=== PATIENT | female | born 1985 | race Caucasian/White ===

== ENCOUNTER 2020-07-09 10:00 | Observation (INO) | payer OTHER ==
[2020-07-06 10:17] LABS: BASOPHILS # (AUTO) 0.1 (0.0-0.1); BASOPHILS % 0.7 % (0.0-1.0); EOSINOPHILS # (AUTO) 0.2 (0.0-0.4); EOSINOPHILS % 2.2 % (0.0-6.0); HEMATOCRIT 38.6 % (34.2-44.1); HEMOGLOBIN 12.9 g/dL (12.0-16.0); LYMPHOCYTES # (AUTO) 2.9 (1.0-3.2); LYMPHOCYTES % 28.5 % (18.0-39.1); MEAN CORPUSCULAR HEMOGLOBIN 30.5 pg (28-32); MEAN CORPUSCULAR HGB CONC 33.4 g/dL (31-35); MEAN CORPUSCULAR VOLUME 91.3 fL (81-99); MONOCYTES # (AUTO) 0.7 (0.2-0.8); NEUTROPHILS # (AUTO) 6.2 (2.1-6.9); PLATELET COUNT 283 x10e3/uL (140-360); RED BLOOD COUNT 4.23 x10e6/uL (3.6-5.1); RED CELL DISTRIBUTION WIDTH 12.3 % (11.7-14.4)
[2020-07-06 10:38] LABS: ALANINE AMINOTRANSFERASE 19 IU/L (0-55); ALBUMIN 3.7 g/dL (3.5-5.0); ALBUMIN/GLOBULIN RATIO 1.1 (0.8-2.0); ALKALINE PHOSPHATASE 78 IU/L (40-150); ANION GAP 16.2 mmol/L (8-16); BLOOD UREA NITROGEN 16 mg/dL (7-26); BUN/CREATININE RATIO 20 (6-25); CALCIUM 8.2 mg/dL (8.4-10.2); CARBON DIOXIDE 19 mmol/L (22-29); CHLORIDE 107 mmol/L (98-107); CREATININE, SERUM 0.82 mg/dL (0.57-1.11); EST GLOMERULAR FILTRATION RATE > 60 ML/MIN (60-); GLUCOSE 109 mg/dL (74-118); POTASSIUM 4.2 mmol/L (3.5-5.1); SODIUM 138 mmol/L (136-145)
[~2020-07-09] VITALS: Ht 175.3 cm; Wt 127.5 kg
[~2020-07-09 10:00] MED LIST: ALEVE; BUSPIRONE HCL10 MG PO; CYMBALTA30 MG PO; DEPAKOTE ER250 MG PO; IBUPROFEN; LIPITOR10 MG PO; METFORMIN HCL500 MG PO; METOPROLOL SUCC50 MG PO; QUETIAPINE FUM100 MG PO; TYLENOL; ZOLPIDEM TARTRAT5 MG PO
[2020-07-09] MEDS ORDERED: BUPIVACAINE 0.25% 30ML SDV ONE (11:16)
[2020-07-09] MEDS ORDERED: BUPIVACAINE LIPOSOME/PF 266 MG/20 ML IJ ONE (11:16)
[2020-07-09] MEDS ORDERED: SODIUM CHLORIDE 0.9% 100 ML ONE (13:36)
[2020-07-09] MEDS ORDERED: BISACODYL 10 MG SUPP PR PRN (16:00)
[2020-07-09] MEDS ORDERED: HYDROMORPHONE 1MG/1ML INJ IV PRN (16:00)
[2020-07-09] MEDS ORDERED: KETOROLAC TROMETHAMINE 30 MG/ML VIAL IM PRN (16:00)
[2020-07-09] MEDS ORDERED: OXYCODONE HCL 10 MG TAB CR PO PRN (16:00)
[2020-07-09] MEDS ORDERED: DIPHENHYDRAMINE HCL 25 MG CAP PO PRN (16:00)
[2020-07-09] MEDS ORDERED: ACETAMINOPHEN 325 MG TAB PO PRN (16:00)
[2020-07-09] MEDS ORDERED: DOCUSATE SODIUM 100 MG CAP PO PRN (16:00)
[2020-07-09] MEDS ORDERED: ONDANSETRON HCL INJ 2MG/ML 2ML 2 MG/ML VIAL IV PRN (16:00)
[2020-07-09 20:00] VITALS: BP 108/72
[2020-07-09] MEDS ORDERED: TOPIRAMATE25 MG PO (20:18)
[2020-07-09 20:20] VITALS: BP 108/72
[2020-07-09] MEDS ORDERED: QUETIAPINE FUMARATE 100 MG TAB PO SCH (21:00)
[2020-07-09] MEDS ORDERED: DULOXETINE HCL 30 MG DELAYED RELEASE PO SCH (21:00)
[2020-07-09] MEDS ORDERED: ATORVASTATIN 20 MG TAB PO SCH (21:00)
[2020-07-09] MEDS ORDERED: ZOLPIDEM TARTRATE 5 MG TAB PO PRN (21:00)
[2020-07-09] MEDS ORDERED: DEXTROSE 50% SYRINGE 50 ML IV PRN (21:15)
[2020-07-09] MEDS: INSULIN REGULAR, HUMAN 100 UNIT/1 ML 3ML VIAL SQ SCH (21:30)
[2020-07-09] MEDS: LACTATED RINGER'S 1,000 ML IV SCH (21:40)
[2020-07-09] MEDS: METFORMIN HCL 500 MG TAB PO SCH (21:41)
[2020-07-09] MEDS: IBUPROFEN 600 MG TAB PO SCH (21:41)
[2020-07-09] MEDS: BUSPIRONE HCL 5 MG TAB PO SCH (21:42)
[2020-07-09] MEDS: DIVALPROEX SODIUM 250 MG TAB...DR PO SCH (21:43)
[2020-07-09] MEDS: GABAPENTIN 300 MG CAP PO SCH (21:43)
[2020-07-09] MEDS: ACETAMINOPHEN 325 MG TAB PO SCH (23:56)
[2020-07-10] VITALS: BP 106/70
[2020-07-10 00:11] VITALS: BP 108/72
[2020-07-10] MEDS: LACTATED RINGER'S 1,000 ML IV SCH ×2 (00:25→08:28)
[2020-07-10] MEDS: IBUPROFEN 600 MG TAB PO SCH ×2 (00:30→05:23)
[2020-07-10 04:00] VITALS: BP 109/64
[2020-07-10] MEDS: ACETAMINOPHEN 325 MG TAB PO SCH (05:23)
[2020-07-10 06:51] LABS: BASOPHILS % 0.1 % (0.0-1.0); HEMATOCRIT 33.4 % (34.2-44.1); LYMPHOCYTES # (AUTO) 1.4 (1.0-3.2); LYMPHOCYTES % 10.1 % (18.0-39.1); MEAN CORPUSCULAR HEMOGLOBIN 30.4 pg (28-32); MEAN CORPUSCULAR HGB CONC 32.9 g/dL (31-35); MEAN CORPUSCULAR VOLUME 92.3 fL (81-99); MONOCYTES # (AUTO) 1.3 (0.2-0.8); MONOCYTES % 9.2 % (4.4-11.3); NEUTROPHILS # (AUTO) 11.3 (2.1-6.9); PLATELET COUNT 236 x10e3/uL (140-360); RED BLOOD COUNT 3.62 x10e6/uL (3.6-5.1); RED CELL DISTRIBUTION WIDTH 12.4 % (11.7-14.4)
[2020-07-10] MEDS: INSULIN REGULAR, HUMAN 100 UNIT/1 ML 3ML VIAL SQ SCH (07:30)
[2020-07-10 08:07] VITALS: BP 114/79
[2020-07-10 08:24] VITALS: BP 114/79
[2020-07-10] MEDS: GABAPENTIN 300 MG CAP PO SCH (08:28)
[2020-07-10] MEDS: METFORMIN HCL 500 MG TAB PO SCH (08:28)
[2020-07-10] MEDS: BUSPIRONE HCL 5 MG TAB PO SCH (08:28)
[2020-07-10] MEDS: DIVALPROEX SODIUM 250 MG TAB...DR PO SCH (08:28)
[2020-07-10] MEDS ORDERED: DULOXETINE HCL 30 MG DELAYED RELEASE PO SCH (09:00)
[2020-07-10] MEDS ORDERED: MOTRIN800 MG PO (09:58)
[2020-07-10] MEDS ORDERED: PERCOCET 5-3251 EACH PO (09:58)
[2020-07-10] MEDS ORDERED: INFLUENZA VIRUS VAC SPLIT INJ 0.5 ML SYR IM SCH (20:45)
== END 2020-07-10 11:05 | disposition home or self-care (01) ==
LOC: OR 10:00 → MED/SURG 18:47 → INTOOBSV 18:47 → MED/SURG 18:55
PROVIDERS: ADMIT Obstetrics & Gynecology; ATTEND Obstetrics & Gynecology
DX: D25.9 Leiomyoma of uterus, unspecified (principal); Z20.822 Contact with and (suspected) exposure to COVID-19; N32.89 Other specified disorders of bladder; N73.6 Female pelvic peritoneal adhesions (postinfective); N83.291 Other ovarian cyst, right side; Z01.818 Encounter for other preprocedural examination; E11.9 Type 2 diabetes mellitus without complications; I10 Essential (primary) hypertension; E78.5 Hyperlipidemia, unspecified; E66.01 Morbid (severe) obesity due to excess calories; Z68.41 Body mass index [BMI] 40.0-44.9, adult
CPT/HCPCS: 36415 ×3; 58545; 58662; 80053; 82948 ×2; 84702; 85025 ×2; 86850; 86900; 88304; 88305; 93005; C9290; G0378 ×2; J1170; J1817; J2405; J7050; J7121 ×2; U0002

== ENCOUNTER 2020-07-15 08:35 | Emergency (ER) | payer OTHER ==
[~2020-07-15] VITALS: Ht 175.3 cm; Wt 128.4 kg
[~2020-07-15 08:35] MED LIST changes: +MOTRIN800 MG PO; +PERCOCET 5-3251 EACH PO; +TOPIRAMATE25 MG PO
== END 2020-07-15 09:37 | disposition home or self-care (01) ==
LOC: ER 09:29
DX: Z48.01 Encounter for change or removal of surgical wound dressing (principal); R11.0 Nausea; I10 Essential (primary) hypertension; E11.9 Type 2 diabetes mellitus without complications; F43.10 Post-traumatic stress disorder, unspecified; F41.9 Anxiety disorder, unspecified; E78.5 Hyperlipidemia, unspecified; M54.9 Dorsalgia, unspecified; G89.29 Other chronic pain; Z86.718 Personal history of other venous thrombosis and embolism
CPT/HCPCS: 99282